=== PATIENT | female | born 1990 | race African-American/Black ===

== ENCOUNTER 2019-03-23 19:33 | Emergency (ER) | payer MEDICAID ==
[~2019-03-23] VITALS: Ht 152.4 cm; Wt 50.0 kg
[~2019-03-23 19:33] MED LIST: LEVE1000 PO; PHEN100C4 PO
[2019-03-23] MEDS ORDERED: IBUPROFEN 600MG TABLET PO ONE (21:15)
[2019-03-23 23:15] VITALS: BP 104/70
== END 2019-03-23 23:18 | disposition home or self-care (01) ==
LOC: ER 19:33
DX: S13.4XXA Sprain of ligaments of cervical spine, initial encounter (principal); V49.50XA Passenger injured in collision with unspecified motor vehicles in traffic accident, initial encounter; Y93.89 Activity, other specified; Y92.39 Other specified sports and athletic area as the place of occurrence of the external cause; F12.90 Cannabis use, unspecified, uncomplicated
CPT/HCPCS: 72040; 81025; 99283